=== PATIENT | female | born 1945 | race Caucasian/White ===

== ENCOUNTER → 2021-03-31 | Outpatient (CLI) | payer OTHER | END | disposition home or self-care (01) | LOC: COVID19 15:10 | PROVIDERS: ATTEND Internal Medicine | DX: Z20.822 Contact with and (suspected) exposure to COVID-19 (principal) ==

== ENCOUNTER → 2021-06-07 | Outpatient (CLI) | payer OTHER | END | disposition home or self-care (01) | LOC: CARD 06:59 | PROVIDERS: ATTEND Internal Medicine Critical Care Medicine | DX: I08.1 Rheumatic disorders of both mitral and tricuspid valves (principal) ==

== ENCOUNTER → 2021-12-11 | Outpatient (CLI) | payer OTHER ==
[2021-12-11 09:17] LABS: BASO % 0.7 % (0.0-1.0); EOS # 0.2 10*3/uL (0.0-0.4); EOS % 3.4 % (1.0-4.0); HEMATOCRIT 36.7 % (37.0-47.0); LYMPH # 1.2 10*3/uL (1.3-4.4); LYMPH % 20.9 % (27.0-41.0); MEAN CELL VOLUME 94.3 fl (81.0-99.0); MEAN CORPUSCULAR HGB 30.1 pg (27.0-31.0); MEAN CORPUSCULAR HGB CONC 31.9 g/dl (33.0-37.0); MEAN PLATELET VOLUME 12.2 fl (9.6-12.3); MONO # 0.5 10*3/uL (0.1-1.0); MONO % 9.7 % (3.0-9.0); NEUT # 3.6 10*3/uL (2.3-7.9); NEUT % 65.1 % (47.0-73.0); PLATELET COUNT AUTOMATED 266 10*3/uL (130-400); RED BLOOD COUNT 3.89 10*6/uL (4.10-5.10); RED CELL DISTRI WIDTH 15.9 % (0-14.5); WHITE BLOOD COUNT 5.5 10*3/uL (4.8-10.8)
[2021-12-11 09:31] LABS: ACT PARTIAL THROMBO TIME 27.1 SECONDS (20.0-32.1); CREATININE 1.58 mg/dL (0.55-1.02); INTERNATIONAL NORM RATIO 1.3 (2.0-3.5); POTASSIUM 4.7 mmol/L (3.5-5.1); TOTAL PROTEIN 7.4 gm/dL (6.4-8.2)
== END | disposition home or self-care (01) ==
LOC: LAB 08:43
PROVIDERS: ATTEND Internal Medicine Cardiovascular Disease
DX: R06.02 Shortness of breath (principal)

== ENCOUNTER 2022-02-09 07:33 | Emergency (ER) | payer OTHER ==
[~2022-02-09] VITALS: Ht 1524 cm; Wt 59.0 kg
[2022-02-09 08:34] LABS: BASO % 0.2 % (0.0-1.0); EOS % 0.4 % (1.0-4.0); HEMATOCRIT 37.8 % (37.0-47.0); LYMPH # 0.8 10*3/uL (1.3-4.4); MEAN CELL VOLUME 90.4 fl (81.0-99.0); MEAN CORPUSCULAR HGB 28.7 pg (27.0-31.0); MEAN CORPUSCULAR HGB CONC 31.7 g/dl (33.0-37.0); MEAN PLATELET VOLUME 11.5 fl (9.6-12.3); MONO # 0.9 10*3/uL (0.1-1.0); NEUT # 7.5 10*3/uL (2.3-7.9); NEUT % 79.9 % (47.0-73.0); PLATELET COUNT AUTOMATED 257 10*3/uL (130-400); RED BLOOD COUNT 4.18 10*6/uL (4.10-5.10); RED CELL DISTRI WIDTH 13.5 % (0-14.5); WHITE BLOOD COUNT 9.3 10*3/uL (4.8-10.8)
[2022-02-09 09:01] LABS: ACT PARTIAL THROMBO TIME 53.6 SECONDS (20.0-32.1); INTERNATIONAL NORM RATIO 4.5 (2.0-3.5)
[2022-02-09 10:09] LABS: ALKALINE PHOSPHATASE 49 U/L (46-116); BUN 10 mg/dl (9-23); CHLORIDE 102 mmol/L (98-107); CREATININE 1.16 mg/dL (0.55-1.02); SODIUM 131 mmol/L (136-145)
[2022-02-09 10:10] LABS: TOTAL PROTEIN 6.6 gm/dL (6.0-8.0)
[2022-02-09 10:14] LABS: SGPT/ALT < 7 U/L (10-49)
[2022-02-09 11:37] LABS: BILIRUBIN Negative (Negative); BLOOD Negative (Negative); CLARITY Clear (Clear); COLOR Dark Yellow (Yellow); GLUCOSE Negative (Negative); KETONE Trace (Negative); LEUKO ESTERASE Negative (Negative); NITRITE Negative (Negative)
[2022-02-09] MEDS ORDERED: ONDANSETRON HYDR4 M1 PO ×2 (11:56→12:13)
[2022-02-09 12:22] LABS: BACTERIA 1+; RBC 0-2 rbc/hpf (0-2)
== END 2022-02-09 12:16 | disposition home or self-care (01) ==
LOC: ED 07:33
PROVIDERS: Emergency Medicine
DX: U07.1 COVID-19 (principal); R79.0 Abnormal level of blood mineral

== ENCOUNTER 2024-05-04 11:03 | Inpatient (IN) | payer OTHER ==
[~2024-05-04] VITALS: Ht 157.4 cm; Wt 56.7 kg
[~2024-05-04 11:03] MED LIST: ONDANSETRON HYDR4 M1 PO
[2024-05-04 11:08] VITALS: BP 155/85
[2024-05-04] MEDS ORDERED: Meclizine Hydrochloride 25 MG TAB PO ONE (14:10)
[2024-05-04 14:57] LABS: HEMATOCRIT 38.4 % (37.0-47.0); MEAN CELL VOLUME 86.1 fl (81.0-99.0); MEAN CORPUSCULAR HGB 26.7 pg (27.0-31.0); MEAN PLATELET VOLUME 12.5 fl (9.6-12.3); PLATELET COUNT AUTOMATED 199 10*3/uL (130-400); RED BLOOD COUNT 4.46 10*6/uL (4.10-5.10); RED CELL DISTRI WIDTH 14.5 % (0-14.5); WHITE BLOOD COUNT 5.4 10*3/uL (4.8-10.8)
[2024-05-04 15:00] LABS: MANUAL DIFF REFLEX YES
[2024-05-04 15:12] LABS: BASOPHILS 1 % (0-1); PLATELET SUFFICIENCY NORMAL (NORMAL); TOTAL CELLS COUNTED 100 #CELLS
[2024-05-04 15:13] LABS: BURR CELLS FEW
[2024-05-04 15:16] LABS: ALKALINE PHOSPHATASE 85 U/L (46-116); BUN 17 mg/dl (9-23); CHLORIDE 102 mmol/L (98-107); POTASSIUM 4.6 mmol/L (3.4-5.1); SGPT/ALT 8 U/L (5-49); TOTAL PROTEIN 6.9 gm/dL (6.0-8.0)
[2024-05-04] MEDS ORDERED: SODIUM CHLORIDE 0.9% 1,000 ML IV ONE (15:20)
[2024-05-04 15:22] VITALS: BP 151/81
[2024-05-04] MEDS ORDERED: TOPCARE OMEPRAZ20 MG PO (16:04)
[2024-05-04] MEDS ORDERED: ROSUVASTATIN CA10 MG PO (16:04)
[2024-05-04] MEDS ORDERED: FENOFIBRATE160 MG PO (16:06)
[2024-05-04] MEDS ORDERED: PREGABALIN75 MG PO (16:07)
[2024-05-04] MEDS ORDERED: LOSARTAN POTAS100 M1 PO (16:07)
[2024-05-04 17:27] LABS: BILIRUBIN Negative (Negative); BLOOD Negative (Negative); CLARITY Clear (Clear); COLOR Yellow (Yellow); GLUCOSE Negative (Negative); KETONE Negative (Negative); LEUKO ESTERASE Negative (Negative); NITRITE Negative (Negative); PH 5.5 (4.5-8.0); SPECIFIC GRAVITY 1.015 (1.001-1.030); UROBILINOGEN 0.2 E.U./dl (0.0-1.0)
[2024-05-04 17:45] LABS: RBC 0-2 rbc/hpf (0-2); WBC 0-2 wbc/hpf (0-5)
[2024-05-04] MEDS ORDERED: Magnesium Hydroxide 30 ML UDC PO PRN (18:20)
[2024-05-04] MEDS ORDERED: ACETAMINOPHEN 325 MG TAB PO PRN (18:20)
[2024-05-04] MEDS ORDERED: BISACODYL 5 MG TAB PO PRN (18:20)
[2024-05-04] MEDS ORDERED: Acetaminophen/Hydrocodone 5 MG/325 MG TABLET PO PRN (18:20)
[2024-05-04] MEDS ORDERED: Ondansetron Hydrochloride 4 MG/2 ML VIAL IV PRN (18:20)
[2024-05-04] MEDS ORDERED: ACETAMINOPHEN 650 MG SUPP R PRN (18:20)
[2024-05-04] MEDS ORDERED: MORPHINE Sulfate 2 MG/ML SYR IV PRN (18:20)
[2024-05-04] MEDS ORDERED: BISACODYL 10 MG SUPP R PRN (18:20)
[2024-05-04] MEDS ORDERED: TEMAZEPAM 15 MG CAP PO PRN (18:20)
[2024-05-04] MEDS ORDERED: SODIUM CHLORIDE 0.9% 1,000 ML IV SCH (18:25)
[2024-05-04 20:15] VITALS: BP 156/88
[2024-05-05] MEDS ORDERED: Pantoprazole Sodium 40 MG TAB PO SCH (06:00)
[2024-05-05 06:05] VITALS: BP 151/72
[2024-05-05 06:31] LABS: ACT PARTIAL THROMBO TIME 26.1 SECONDS (20.0-32.1)
[2024-05-05 06:39] LABS: BASO % 0.6 % (0.0-1.0); EOS # 0.1 10*3/uL (0.0-0.4); EOS % 2.3 % (1.0-4.0); HEMATOCRIT 34.7 % (37.0-47.0); MEAN CELL VOLUME 87.4 fl (81.0-99.0); MEAN CORPUSCULAR HGB 26.4 pg (27.0-31.0); MEAN CORPUSCULAR HGB CONC 30.3 g/dl (33.0-37.0); MONO # 0.6 10*3/uL (0.1-1.0); MONO % 12.4 % (3.0-9.0); NEUT # 2.9 10*3/uL (2.3-7.9); NEUT % 59.1 % (47.0-73.0); PLATELET COUNT AUTOMATED 174 10*3/uL (130-400); RED BLOOD COUNT 3.97 10*6/uL (4.10-5.10); RED CELL DISTRI WIDTH 14.5 % (0-14.5); WHITE BLOOD COUNT 4.8 10*3/uL (4.8-10.8)
[2024-05-05 06:58] LABS: ALKALINE PHOSPHATASE 73 U/L (46-116); BUN 12 mg/dl (9-23); CHLORIDE 107 mmol/L (98-107); CHOLESTEROL 119 mg/dL (<200); FREE T4 1.07 ng/dl (0.89-1.76); LDL CHOLESTEROL 60 mg/dL (9-159); POTASSIUM 4.1 mmol/L (3.4-5.1); TOTAL PROTEIN 5.8 gm/dL (6.0-8.0); TRIGLYCERIDES 98 mg/dl (<150)
[2024-05-05] MEDS ORDERED: OMEPRAZOLE 20 MG CAP PO SCH (07:00)
[2024-05-05 07:01] LABS: SGPT/ALT < 7 U/L (5-49)
[2024-05-05] MEDS ORDERED: Losartan Potassium 100 MG TABLET PO SCH ×2 (08:55→10:00)
[2024-05-05 08:56] VITALS: BP 173/83
[2024-05-05 09:10] LABS: VITAMIN D, 25-HYDROXY 44.8 ng/mL (30-100)
[2024-05-05] MEDS ORDERED: Enoxaparin Sodium 40 MG/0.4 ML SYR SC SCH (10:00)
[2024-05-05] MEDS ORDERED: Rosuvastatin Calcium 10 MG TABLET PO SCH (10:00)
[2024-05-05] MEDS ORDERED: FENOFIBRATE 145 MG TAB PO SCH (10:00)
[2024-05-05] MEDS ORDERED: CYANOCOBALAMIN 500 MCG TAB PO SCH (10:00)
[2024-05-05] MEDS ORDERED: PREGABALIN 75 MG CAP PO SCH (10:00)
[2024-05-05] MEDS ORDERED: DONEPEZIL HCL10 MG PO (12:46)
[2024-05-05 14:40] VITALS: BP 157/78
[2024-05-05] MEDS ORDERED: PHARMASSURE V500 MCG PO (15:41)
[2024-05-05] MEDS ORDERED: DONEPEZIL 10 MG TAB PO SCH (22:00)
== END 2024-05-05 16:08 | disposition home or self-care (01) | DRG 73 ==
LOC: ED 11:03 → EDHOLD 18:08 → 4E 05-05 14:28
PROVIDERS: Nurse Practitioner Family; Student in an Organized Health Care Education/Training Program; ADMIT Internal Medicine; ATTEND Internal Medicine
DX: G90.89 Other disorders of autonomic nervous system (principal); G93.41 Metabolic encephalopathy; E44.1 Mild protein-calorie malnutrition; F03.90 Unspecified dementia, unspecified severity, without behavioral disturbance, psychotic disturbance, mood disturbance, and anxiety; I95.1 Orthostatic hypotension; K21.9 Gastro-esophageal reflux disease without esophagitis; Z66 Do not resuscitate; E78.2 Mixed hyperlipidemia; N18.31 Chronic kidney disease, stage 3a; E53.8 Deficiency of other specified B group vitamins; I12.9 Hypertensive chronic kidney disease with stage 1 through stage 4 chronic kidney disease, or unspecified chronic kidney disease; Z20.822 Contact with and (suspected) exposure to COVID-19; Z90.710 Acquired absence of both cervix and uterus; Z79.899 Other long term (current) drug therapy

== ENCOUNTER → 2024-05-22 | Outpatient (CLI) | payer OTHER ==
[~2024-05-22] MED LIST changes: +DONEPEZIL HCL10 MG PO; +FENOFIBRATE160 MG PO; +LOSARTAN POTAS100 M1 PO; +PHARMASSURE V500 MCG PO; +PREGABALIN75 MG PO; +ROSUVASTATIN CA10 MG PO; +TOPCARE OMEPRAZ20 MG PO
== END | disposition home or self-care (01) ==
LOC: RAD 11:34
PROVIDERS: ATTEND Family Medicine
DX: M19.042 Primary osteoarthritis, left hand (principal); M19.032 Primary osteoarthritis, left wrist; M25.832 Other specified joint disorders, left wrist; M79.642 Pain in left hand

== ENCOUNTER → 2024-07-20 | Outpatient (CLI) | payer OTHER | END | disposition home or self-care (01) | LOC: MAMMO 08:53 | PROVIDERS: ATTEND Internal Medicine Nephrology | DX: Z12.31 Encounter for screening mammogram for malignant neoplasm of breast (principal); M81.8 Other osteoporosis without current pathological fracture; R92.313 Mammographic fatty tissue density, bilateral breasts; N64.89 Other specified disorders of breast; Z78.0 Asymptomatic menopausal state ==

== ENCOUNTER 2024-10-24 06:49 | Emergency (ER) | payer OTHER ==
[~2024-10-24] VITALS: Ht 160 cm; Wt 57.6 kg
[2024-10-24] MEDS ORDERED: SODIUM CHLORIDE 0.9% 500 ML IV ONE (07:15)
[2024-10-24] MEDS ORDERED: Ondansetron Hydrochloride 4 MG/2 ML VIAL IV ONE (07:20)
[2024-10-24 07:42] LABS: NUCLEATED RED BLOOD CELL 0.0 % (0.0-0.0); NUCLEATED RED BLOOD CELL 0.0 10*3/uL (0.0-0.0)
[2024-10-24 07:47] LABS: MEAN CELL VOLUME 83.5 fl (81.0-99.0); MEAN CORPUSCULAR HGB 25.4 pg (27.0-31.0); MEAN PLATELET VOLUME 12.4 fl (9.6-12.3); PLATELET COUNT AUTOMATED 176 10*3/uL (130-400); RED CELL DISTRI WIDTH 16.5 % (0-14.5)
[2024-10-24 07:56] LABS: MANUAL DIFF REFLEX YES
[2024-10-24 08:00] LABS: BUN 10 mg/dl (9-23)
[2024-10-24 08:01] LABS: BASOPHILS 1 % (0-1); PLATELET SUFFICIENCY NORMAL (NORMAL)
[2024-10-24] MEDS ORDERED: Dexamethasone Sodium Phospha 20 MG/5 ML VIAL IV ONE (08:10)
[2024-10-24] MEDS ORDERED: PREDNISONE50 MG PO (08:51)
[2024-10-24] MEDS ORDERED: Ondansetron4 MG PO (08:51)
[2024-10-24] MEDS ORDERED: TRAMADOL HCL50 MG PO (08:51)
[2024-10-24] MEDS ORDERED: COLCRYS0.6 M1 PO (08:51)
[2024-10-24] MEDS ORDERED: COLCHICINE 0.6 MG TAB PO ONE (08:55)
== END 2024-10-24 09:04 | disposition home or self-care (01) ==
LOC: ED 06:49
PROVIDERS: Emergency Medicine
DX: M10.031 Idiopathic gout, right wrist (principal); M25.531 Pain in right wrist; R42 Dizziness and giddiness; Z79.899 Other long term (current) drug therapy; Z90.710 Acquired absence of both cervix and uterus; Z98.890 Other specified postprocedural states

== ENCOUNTER 2024-11-11 14:49 | Emergency (ER) | payer OTHER ==
[~2024-11-11] VITALS: Ht 167.6 cm; Wt 56.2 kg
[~2024-11-11 14:49] MED LIST changes: +COLCRYS0.6 M1 PO; +Ondansetron4 MG PO; +PREDNISONE50 MG PO; +TRAMADOL HCL50 MG PO
[2024-11-11] MEDS ORDERED: SODIUM CHLORIDE 0.9% 1,000 ML IV ONE (16:15)
[2024-11-11] MEDS ORDERED: Ondansetron Hydrochloride 4 MG/2 ML VIAL IV ONE (16:15)
[2024-11-11 17:01] LABS: BASO # 0.1 10*3/uL (0.0-0.1); BASO % 0.9 % (0.0-1.0); EOS # 0.1 10*3/uL (0.0-0.4); EOS % 2.3 % (1.0-4.0); MEAN CELL VOLUME 83.9 fl (81.0-99.0); MEAN CORPUSCULAR HGB 25.6 pg (27.0-31.0); MEAN PLATELET VOLUME 11.8 fl (9.6-12.3); MONO # 0.6 10*3/uL (0.1-1.0); MONO % 10.9 % (3.0-9.0); NEUT # 2.9 10*3/uL (2.3-7.9); NEUT % 55.5 % (47.0-73.0); NUCLEATED RED BLOOD CELL 0.0 % (0.0-0.0); NUCLEATED RED BLOOD CELL 0.0 10*3/uL (0.0-0.0); PLATELET COUNT AUTOMATED 227 10*3/uL (130-400); RED CELL DISTRI WIDTH 16.5 % (0-14.5)
[2024-11-11 17:06] LABS: BUN 12 mg/dl (9-23)
[2024-11-11 18:39] LABS: BILIRUBIN Negative (Negative); BLOOD Negative (Negative); CLARITY Clear (Clear); COLOR Yellow (Yellow); KETONE Negative (Negative); LEUKO ESTERASE Negative (Negative); NITRITE Negative (Negative); PH 8.0 (4.5-8.0); SPECIFIC GRAVITY 1.010 (1.001-1.030); UROBILINOGEN 0.2 E.U./dl (0.0-1.0)
[2024-11-11 18:48] LABS: EPITHELIAL CELLS 0-2
[2024-11-11] MEDS ORDERED: Ondansetron4 MG PO (19:45)
== END 2024-11-11 20:02 | disposition home or self-care (01) ==
LOC: ED 14:49
PROVIDERS: Nurse Practitioner Family
DX: R42 Dizziness and giddiness (principal); R11.2 Nausea with vomiting, unspecified; R51.9 Headache, unspecified; I12.9 Hypertensive chronic kidney disease with stage 1 through stage 4 chronic kidney disease, or unspecified chronic kidney disease; N18.31 Chronic kidney disease, stage 3a; F03.90 Unspecified dementia, unspecified severity, without behavioral disturbance, psychotic disturbance, mood disturbance, and anxiety; K21.9 Gastro-esophageal reflux disease without esophagitis; E78.5 Hyperlipidemia, unspecified; Z86.711 Personal history of pulmonary embolism; Z79.899 Other long term (current) drug therapy; Z90.711 Acquired absence of uterus with remaining cervical stump; Z98.890 Other specified postprocedural states